=== PATIENT | female | born 1965 | race Caucasian/White ===

== ENCOUNTER 2020-01-24 12:15 | Outpatient (CLI) | payer BC ==
--- NOTE | 2020-01-24 12:58 | RAD ---
Exam:2 views left forearm HISTORY: Pain. Injury. COMPARISON: None FINDINGS: Impacted, nondisplaced distal radius fracture. There is intra-articular extension. Associat ed soft tissue swelling. IMPRESSION: Distal radius fracture.
== END 2020-01-24 12:16 | disposition home or self-care (01) ==
LOC: NAV RAD 12:15
PROVIDERS: ATTEND Internal Medicine
DX: S50.12XA Contusion of left forearm, initial encounter (principal); S52.502A Unspecified fracture of the lower end of left radius, initial encounter for closed fracture